=== PATIENT | male | born 1950 ===

== ENCOUNTER 2017-06-05 21:49 | Emergency (ER) | payer OTHER ==
[2017-06-05 21:49] VITALS: BMI 29.0
[2017-06-05 21:59] VITALS: RESP 17; TEMP 98; O2SAT 99
--- NOTE | 2017-06-05 22:30 | ED PDOC ---
HPI: Male Pain Time Seen by Provider: 06/05/17 22:27 Chief Complaint (Nursing): Male Genitourinary Chief Complaint (Provider): urinary discomfort History Per: Patient (66 y/o male here for evaluation of difficulty urinating since 6pm today. Patient has h/o BPH with urinary retention in past. STates he is pending surgical intervention.) Past Medical History Reviewed: Historical Data, Nursing Documentation, Vital Signs Vital Signs: Last Vital Signs Temp 98.0 F 06/05/17 21:54 Pulse 67 06/05/17 21:54 Resp 17 06/05/17 21:54 BP 167/103 H 06/05/17 21:54 Pulse Ox 99 06/05/17 21:54 - Medical History PMH: Benign Prostatic Hyperplasia, HTN (CANNOT REMEMBER MED NAME) - Family History Family History: States: Unknown Family Hx - Immunization History Hx Tetanus Toxoid Vaccination: Yes Hx Influenza Vaccination: Yes Hx Pneumococcal Vaccination: Yes - Home Medications Home Medications: Ambulatory Orders Medication Instructions Recorded Finasteride 5 mg PO DAILY 02/22/16 - Allergies Allergies/Adverse Reactions: Allergies Allergy/AdvReac Type Severity Reaction Status Date / Time No Known Allergies Allergy Verified 06/05/17 21:59 Review of Systems ROS Statement: Except As Marked, All Systems Reviewed And Found Negative Physical Exam - Reviewed Nursing Documentation Reviewed: Yes Vital Signs Reviewed: Yes - Physical Exam Appears: Positive for: Well, Non-toxic, No Acute Distress Head Exam: Positive for: ATRAUMATIC, NORMAL INSPECTION, NORMOCEPHALIC Skin: Positive for: Normal Color, Warm, DRY Eye Exam: Positive for: EOMI, Normal appearance, PERRL ENT: Positive for: Normal ENT Inspection Neck: Positive for: Normal, Painless ROM Cardiovascular/Chest: Positive for: Regular Rate, Rhythm Respiratory: Positive for: CNT, Normal Breath Sounds Gastrointestinal/Abdominal: Positive for: Normal Exam, Bowel Sounds, Soft, Other (lower abdominal distention noted.) Back: Positive for: Normal Inspection Extremity: Positive for: Normal ROM Neurologic/Psych: Positive for: Alert, Oriented - Laboratory Results Urine dip results: Negative for: Leukocyte Esterase, Blood, Nitrate, Ketones, Glucose, Bilirubin, Protein - ECG O2 Sat by Pulse Oximetry: 99 - Progress ED Course And Treament: Ford catheter placed with 700ml urine noted. Patient states he is on medication for urinary retention already. Disposition - Clinical Impression Clinical Impression: Acute urinary retention - Patient ED Disposition Is Patient to be Admitted: No - Disposition Referrals: Ashely Jacobs MD [Medical Doctor] - Disposition: Routine/Home Disposition Time: 00:00 Condition: FAIR Instructions: Urinary Retention in Men (ED) Forms: [facility] ([place])
[2017-06-05 23:15] LABS: RBC URINE 1 /hpf (0-3); URINE BILIRUBIN NEGATIVE (NEGATIVE); URINE BLOOD NEGATIVE (NEGATIVE); URINE COLOR YELLOW (YELLOW); URINE GLUCOSE (UA) NEG (Normal); URINE KETONE NEGATIVE (NEGATIVE); URINE LEUKOCYTE ESTERASE NEG Leu/uL (Negative); URINE PROTEIN NEGATIVE (NEGATIVE); URINE UROBILINOGEN 0.2-1.0 mg/dL (0.2-1.0); WBC URINE < 1 /hpf (0-5)
[2017-06-06 00:19] VITALS: BP 139/92; PULSE 78
== END 2017-06-06 00:41 | disposition home or self-care (01) ==
LOC: H.ER 21:49
DX: R33.8 Other retention of urine (principal); N40.1 Benign prostatic hyperplasia with lower urinary tract symptoms; I10 Essential (primary) hypertension

== ENCOUNTER 2018-05-28 09:25 | Day surgery (SDC) | payer MEDICARE, MEDICAID ==
[2018-05-24 07:25] VITALS: BMI 29.5
[2018-05-28] MEDS ORDERED: cefTRIAXone (Rocephin) 1 gm Inj ONE (09:48)
[2018-05-28 10:22] VITALS: RESP 18
[2018-05-28] MEDS ORDERED: Lactated Ringer's 1,000 ML IV ONE (10:53)
[2018-05-28] MEDS ORDERED: ePHEDrine 50 mg/ml Inj ONE ×3 (10:55→11:32)
[2018-05-28] MEDS ORDERED: Midazolam 2 MG/2 ML VIAL ONE (10:55)
[2018-05-28] MEDS ORDERED: Propofol 10 mg/ml Inj (20 ML) ONE ×2 (10:55→12:07)
[2018-05-28] MEDS ORDERED: Succinylcholine 200 mg/10 ml Inj IV ONE (10:56)
[2018-05-28] MEDS ORDERED: Lidocaine 4% (Laryng-O-Jet) Kit MM ONE (10:56)
[2018-05-28] MEDS ORDERED: cefTRIAXone (Rocephin) 1 gm Inj IM ONE (11:05)
[2018-05-28] MEDS ORDERED: Dexamethasone 4 mg/1 ml ONE (11:30)
[2018-05-28] MEDS ORDERED: Phenylephrine 10 mg/ml Inj ONE (11:32)
[2018-05-28] MEDS ORDERED: HYDROmorphone 0.5 mg/0.5 ml ISec IVP PRN (12:20)
[2018-05-28] MEDS ORDERED: Lactated Ringer's 1,000 ML IV SCH (12:30)
[2018-05-28 15:59] VITALS: BP 131/88; PULSE 94; TEMP 97.9; O2SAT 98
--- NOTE | 2018-06-28 07:43 | OP ---
PROCEDURE DATE: 05/30/2018 PREOPERATIVE DIAGNOSIS: Benign prostatic hypertrophy. POSTOPERATIVE DIAGNOSIS: Benign prostatic hypertrophy. PROCEDURE: GreenLight laser of the prostate. SURGEON: Ashely Jacobs MD DESCRIPTION OF PROCEDURE: The patient was placed on the operating room table in a dorsal lithotomy position. The area of the groin was draped and prepped in a sterile manner. Using a laser scope, I entered per urethra into the bladder. We identified the adenoma that needed to be resected. At this time, I deployed a laser fiber and demarcated the distal portion of the resection and following this, then I began to laser first the middle lobe and then the left and right lateral lobes, started out at 80 ruiz power and ended up at 180 ruiz power to fully lase the adenoma that was present. Once I had a sufficient view from the verumontanum into the bladder, we identified ureteral orifices, they were in normal position. I emptied the bladder and looked for residual bleeders. I used the cautery to cauterize those bleeders and following that then the laser scope was removed and a #24 three-way Fodr catheter was inserted. CBI was begun. The initial outflow was clear. I estimated a total blood loss to be less than 50 mL for the procedure. The patient was taken from the operating room in good condition. Ashely Jacobs MD
== END 2018-05-28 16:50 | disposition home or self-care (01) ==
LOC: H.OPSURG 09:25
PROVIDERS: ATTEND Urology
DX: R33.8 Other retention of urine (principal); I10 Essential (primary) hypertension; Z87.891 Personal history of nicotine dependence
CPT/HCPCS: 52648; J0330; J0696; J1100; J2001; J2250; J2370; J2405; J2704; J3010; J7030; J7120